=== PATIENT | male | born 1990 | race Caucasian/White ===

== ENCOUNTER 2017-04-24 12:15 | Emergency (ER) | payer MEDICAID ==
[~2017-04-24] VITALS: Ht 162.6 cm; Wt 52.0 kg
[2017-04-24 12:28] VITALS: BP 121/62; PULSE 80; RESP 16; TEMP 99.2; O2SAT 99
--- NOTE | 2017-04-24 12:43 | PD ---
HPI . right ear issues x 2 days Chief Complaint: ENT Complaint Time Seen by Provider: 12:43 Travel History International Travel<30 days: No Contact w/Intl Traveler<30days: No Traveled to known affect area: No History of Present Illness HPI 26 yr old male here with c/o right ear discomfort x 2 days. Patient says he was poking around with a Q tip and left it in his ear because it made it feel better. He then sat back and the q tip poked into his ear causing some sudden onset of pain. He noticed some blood. He has been having some discomfort and decreased hearing and wanted it checked out. He denies any fever or chills. He has no other complaints. PFSH Past Medical History ADHD: No Cancer: No Cardiovascular Problems: No Diabetes: No Diminished Hearing: No Psychiatric: Yes (adhd [id number]- LOW IQ OF 65) Immunizations Current: Yes Migraines: No Seizures: No Thyroid Disease: No Ulcer: No Past Surgical History Appendectomy: No Cholecystectomy: No Tonsillectomy: Yes Other Surgery: No Social History Alcohol Use: No Tobacco Use: Yes Substance Use: No Allergies-Medications (Allergen,Severity, Reaction): Coded Allergies: No Known Allergies (Verified , 10/01/16) Reported Meds & Prescriptions Reported Meds & Active Scripts Active No Active Prescriptions or Reported Medications Review of Systems General / Constitutional: No: Fever Eyes: No: Visual changes HENT: Positive: Ear Discharge (blood), Earache, No: Headaches Cardiovascular: No: Chest Pain or Discomfort Respiratory: No: Shortness of Breath Gastrointestinal: No: Abdominal Pain Genitourinary: No: Dysuria Musculoskeletal: No: Pain Skin: No Rash Neurologic: No: Weakness Psychiatric: No: Depression Endocrine: No: Polydipsia Hematologic/Lymphatic: No: Easy Bruising Physical Exam Narrative GENERAL: AAO x 3, no acute distress, Well-nourished, well-developed patient. SKIN: Warm and dry. No visible rashes or bruising. HEAD: Normocephalic and atraumatic. EYES: No scleral icterus. No injection or drainage. EOM intact, PERRLA. No nystagmus ENT: No nasal drainage noted. Mucous membranes pink. Airway patent. No oropharynx abnormality, left TM normal, right TM perforated small amount of blood, no drainage present at this time. No hemotympanum NECK: Supple, trachea midline. No JVD. No lymphadenopathy CARDIOVASCULAR: Regular rate and rhythm without murmurs, gallops, or rubs. RESPIRATORY: Breath sounds equal bilaterally. No accessory muscle use. No rhonchi or rales. GASTROINTESTINAL: Abdomen soft, non-tender, nondistended. EXTREMITIES: No cyanosis or edema. Normal gait. BACK: Nontender without obvious deformity. No CVA tenderness. NEURO: Grossly intact PSYCH: AAO x 3, normal affect. Data Data Last Documented VS Vital Signs Date Time Temp Pulse Resp B/P Pulse Ox O2 Delivery O2 Flow Rate FiO2 04/24/17 12:28 99.2 80 16 121/62 99 MDM Medical Decision Making Medical Screen Exam Complete: Yes Emergency Medical Condition: Yes Medical Record Reviewed: Yes Differential Diagnosis Ruptured tympanic membrane, less likely otitis media, less likely otitis externa Narrative Course 26-year-old male here with complaints of right ear discomfort. Examination reveals a ruptured tympanic membranes. 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 This does not appear to be infected or at risk of infection. I recommend Tylenol and Motrin as needed for pain. I've explained that he needs to keep this area free of moisture and from any type of foreign object. Patient kept asking if he could put wet tissue, water, drops, etc., into his ear. I stressed the importance of not putting these items into his ear. Patient verbalized understanding of instructions, questions were answered, and thanked me for their care. I advised them if their condition worsens, please return to the nearest emergency room for further care. Diagnosis Primary Impression: Ruptured tympanic membrane Qualified Code: H72.91 - Ruptured tympanic membrane, right Referrals: Ear / Nose / Throat Specialist Patient Instructions: General Instructions Additional Instructions: You can use Tylenol and Motrin as needed for pain. Do not insert any other objects into your ear. Do not get the ear wet. Try to keep it dry. Do not put any over the counter drops or formulations into your ear. You will need to follow up with an ear, nose and throat specialist. Please call tomorrow for an appointment. Scripts No Active Prescriptions or Reported Meds Disposition: 01 DISCHARGE HOME Condition: Stable Betsey Castellanos Apr 24, 2017 12:43
== END 2017-04-24 13:22 | disposition home or self-care (01) ==
LOC: PHED 12:15
DX: H72.91 Unspecified perforation of tympanic membrane, right ear (principal); Z72.0 Tobacco use; Z86.59 Personal history of other mental and behavioral disorders; X58.XXXA Exposure to other specified factors, initial encounter
CPT/HCPCS: 99282

== ENCOUNTER 2018-03-28 17:01 | Emergency (ER) | payer MEDICAID ==
[~2018-03-28] VITALS: Ht 162.6 cm; Wt 66.0 kg
[2018-03-28 17:15] VITALS: BP 133/66; PULSE 79; RESP 16; TEMP 98.5; O2SAT 99
--- NOTE | 2018-03-28 17:44 | PD ---
HPI Chief Complaint: Complaint Time Seen by Provider: 17:32 Travel History International Travel<30 days: No Contact w/Intl Traveler<30days: No Traveled to known affect area: No History of Present Illness HPI 27-year-old male here requesting testing for HPV. He reports he was recently informed by his partner that she tested positive for HPV years ago. He is very concerned over this. He is asymptomatic. He has no medical complaint today. PFSH Past Medical History Medical History: Denies Significant Hx ADHD: No Cancer: No Cardiovascular Problems: No Diabetes: No Diminished Hearing: No Psychiatric: Yes (adhd [id number]- LOW IQ OF 67) Immunizations Current: Yes Migraines: No Seizures: No Thyroid Disease: No Ulcer: No Tetanus Vaccination: < 5 Years Influenza Vaccination: No Past Surgical History Appendectomy: No Cholecystectomy: No Tonsillectomy: Yes Other Surgery: No Social History Alcohol Use: No Tobacco Use: Yes Substance Use: No Allergies-Medications (Allergen,Severity, Reaction): Coded Allergies: No Known Allergies (Verified Adverse Reaction, Unknown, 03/28/18) Reported Meds & Prescriptions Reported Meds & Active Scripts Active No Active Prescriptions or Reported Medications Review of Systems Except as stated in HPI: all other systems reviewed are Neg General / Constitutional: No: Fever Eyes: No: Visual changes HENT: No: Headaches Cardiovascular: No: Chest Pain or Discomfort Respiratory: No: Shortness of Breath Gastrointestinal: No: Abdominal Pain Genitourinary: No: Dysuria Physical Exam Narrative GENERAL: Alert and well-appearing 27-year-old male SKIN: Warm and dry. HEAD: Normocephalic. EYES: No injection or drainage. NECK: Supple GASTROINTESTINAL: nondistended. MUSCULOSKELETAL: No cyanosis, or edema. Data Data Last Documented VS Vital Signs Date Time Temp Pulse Resp B/P (MAP) Pulse Ox O2 Delivery O2 Flow Rate FiO2 03/28/18 17:15 98.5 79 16 133/66 (88) 99 MDM Medical Decision Making Medical Screen Exam Complete: Yes Emergency Medical Condition: Yes Differential Diagnosis HPV exposure, Narrative Course 27-year-old male here requesting testing for HPV. Diagnosis Primary Impression: Encounter for medical screening examination Referrals: [facility] Additional Instructions: Follow-up with health department for full STD screening Scripts No Active Prescriptions or Reported Meds Disposition: 01 DISCHARGE HOME Condition: Stable Leedy,Jeaneth N [employer] L[employer] MANAGER Mar 28, 2018 17:44
== END 2018-03-28 18:05 | disposition home or self-care (01) ==
LOC: PHEFT 17:01
DX: Z00.00 Encounter for general adult medical examination without abnormal findings (principal); Z20.2 Contact with and (suspected) exposure to infections with a predominantly sexual mode of transmission; F42.9 Obsessive-compulsive disorder, unspecified; Z72.0 Tobacco use
CPT/HCPCS: 99281